=== PATIENT | female | born 1980 | race Caucasian/White ===

== ENCOUNTER 2024-12-14 12:59 | Emergency (ER) | payer OTHER ==
[~2024-12-14] VITALS: Ht 167.6 cm; Wt 92.5 kg
[2024-12-14 13:13] VITALS: O2SAT 99
[2024-12-14 14:10] LABS: BASOPHILS % 1.7 % (0.0-2.0); EOSINOPHILS % 1.6 % (0.0-5.0); HEMATOCRIT. 29.4 % (36.0-48.0); LYMPHOCYTES % 19.4 % (20.0-50.0); MEAN CORPUSCULAR HEMOGLOBIN 15.6 pg (28.0-32.0); MEAN CORPUSCULAR HGB CONC 27.1 g/dL (31.0-37.0); MEAN CORPUSCULAR VOLUME 57.6 fL (81.0-99.0); MEAN PLATELET VOLUME 8.9 fl (7.4-10.4); MONOCYTES % 9.5 % (2.0-8.0); NEUTROPHILS % 67.8 % (40.0-76.0); PLATELET 272 x1000/uL (130-400); RED CELL DISTRIBUTION WIDTH 19.3 % (11.6-14.6); WHITE BLOOD COUNT 9.6 x1000/uL (4.5-11.0)
[2024-12-14 14:19] LABS: CHLORIDE 106 mEq/L (98-107); POTASSIUM 3.6 mEq/L (3.5-5.1); SODIUM 139 mEq/L (136-145)
[2024-12-14 14:20] LABS: CALCIUM 9.4 mg/dL (8.7-10.4); CARBON DIOXIDE 25 mEq/L (21-32)
[2024-12-14 14:25] LABS: CREATININE 0.6 mg/dL (0.6-1.0); GLUCOSE 170 mg/dL (70-105); UREA NITROGEN BLOOD 8 mg/dL (9-23)
[2024-12-14 14:42] LABS: ADD RBC MORPHOLOGY YES; DIFFERENTIAL COMMENT 1
[2024-12-14 14:48] LABS: HCG SCREEN NEGATIVE
[2024-12-14 15:00] LABS: PLATELET ESTIMATE NORMAL
[2024-12-14 15:04] LABS: ANISOCYTOSIS 2+; MICROCYTOSIS 3+
[2024-12-14 15:05] LABS: HYPOCHROMASIA 1+
[2024-12-14] MEDS ORDERED: BACITRACIN ZINC OINT UDPKT TOP ONE (17:00)
[2024-12-14] MEDS ORDERED: LIDOCAINE HCL/PF 1% 10 MG/ML 5ML VIAL INFIL ONE (17:00)
[2024-12-14] MEDS ORDERED: MEDR10TA11 MT (19:38)
[2024-12-14 20:07] VITALS: BP 121/57; PULSE 80; RESP 16; TEMP 36.8; O2SAT 100
== END 2024-12-14 20:14 | disposition home or self-care (01) ==
LOC: ER 12:59
DX: D64.9 Anemia, unspecified (principal); N92.0 Excessive and frequent menstruation with regular cycle; Z88.0 Allergy status to penicillin
CPT/HCPCS: 36415; 76830; 76856; 80048; 84703; 85025; 86850; 86900; 99284